=== PATIENT | female | born 1950 | race Caucasian/White ===

== ENCOUNTER 2023-11-10 13:53 | Emergency (ER) | payer MEDICARE, BC ==
[~2023-11-10] VITALS: Ht 170.2 cm; Wt 91.6 kg
[~2023-11-10 13:53] MED LIST: ESCITALOPRAM OX20 MG PO; IRON SLOW RELEA45 MG PO; LEXAPRO20 MG PO; MIDODRINE5 MG PO; OMEPRAZOLE DR20 MG PO; OMEPRAZOLE DR40 MG PO; ROSUVASTATIN CA20 MG PO; TOPROL XL25 M1 PO; XARELTO20 MG PO
[2023-11-10 14:00] VITALS: BP 151/92
[2023-11-10 14:15] VITALS: BP 140/89
[2023-11-10 14:41] LABS: EOS% 1.1 % (0-8); HEMATOCRIT 43.9 % (37.0-47.0); HEMOGLOBIN 14.7 g/dl (12.0-16.0); IMMATURE GRANULOCYTES 0.1 % (0.0-5.0); LYMPH% 17.3 % (15-41); MEAN CELL VOLUME 101.4 fL CALC (80.0-100.0); MEAN CORPUSCULAR HGB 33.9 pG CALC (26.0-32.0); MEAN CORPUSCULAR HGB CONC 33.5 g/dL CAL (32.0-36.0); MONO% 14.2 % (2-13); NEUT# 4.7 thou/uL (2.00-7.15); NEUT% 66.3 % (42-76); RED BLOOD COUNT 4.33 mill/uL (4.20-5.60); RED CELL DISTRI WIDTH 11.7 % (11.5-15.5)
[2023-11-10 14:58] LABS: ALBUMIN 4.4 g/dL (3.2-5.0); BILIRUBIN, TOTAL 0.9 mg/dL (0.02-1.3); CREATININE 0.8 mg/dL (0.5-1.0); POTASSIUM 4.3 mmol/l (3.5-5.1)
[2023-11-10 15:45] VITALS: BP 151/85
[2023-11-10 16:00] VITALS: BP 150/98
[2023-11-10 16:04] VITALS: BP 150/98
== END 2023-11-10 16:04 | disposition home or self-care (01) ==
LOC: ED 13:53
PROVIDERS: Family Medicine
DX: S00.83XA Contusion of other part of head, initial encounter (principal); S00.10XA Contusion of unspecified eyelid and periocular area, initial encounter; H11.33 Conjunctival hemorrhage, bilateral; I48.91 Unspecified atrial fibrillation; I10 Essential (primary) hypertension; W01.0XXA Fall on same level from slipping, tripping and stumbling without subsequent striking against object, initial encounter; Y92.009 Unspecified place in unspecified non-institutional (private) residence as the place of occurrence of the external cause; Z79.01 Long term (current) use of anticoagulants

== ENCOUNTER 2024-04-16 13:48 | Observation (INO) | payer MEDICARE, BC ==
[~2024-04-16] VITALS: Ht 170.2 cm; Wt 98.2 kg
[2024-04-16] VITALS (95 sets, daily range): BP systolic 110–162; BP diastolic 49–118
[~2024-04-16 13:48] MED LIST changes: +PROPOFOL 200 MG/20 ML VIAL IV ONE
--- NOTE | 2024-04-16 13:48 | NUR ---
PT TO ROOM VIA EMS STRETCHER
[2024-04-16 14:22] LABS: BASO% 0.1 % (0-3); IMMATURE GRANULOCYTES 0.2 % (0.0-5.0); LYMPH% 4.3 % (15-41); MEAN CELL VOLUME 100.9 fL CALC (80.0-100.0); MEAN CORPUSCULAR HGB 34.9 pG CALC (26.0-32.0); MEAN CORPUSCULAR HGB CONC 34.6 g/dL CAL (32.0-36.0); MONO% 7.9 % (2-13); NEUT# 9.81 thou/uL (2.00-7.15); NEUT% 87.5 % (42-76); RED BLOOD COUNT 3.41 mill/uL (4.20-5.60); RED CELL DISTRI WIDTH 12.3 % (11.5-15.5)
[2024-04-16 14:32] LABS: ALBUMIN 4.7 g/dL (3.2-5.0); CREATININE 0.7 mg/dL (0.5-1.0); POTASSIUM 4.5 mmol/l (3.5-5.1); TOTAL PROTEIN 7.1 g/dL (6.3-8.2)
[2024-04-16 14:33] LABS: BILIRUBIN, TOTAL 1.7 mg/dL (0.02-1.3); HEMATOCRIT 34.4 % (37.0-47.0); HEMOGLOBIN 11.9 g/dl (12.0-16.0)
[2024-04-16] MEDS ORDERED: ONDANSETRON HCl 4 MG/2 ML SDV IV ONE (14:50)
[2024-04-16] MEDS ORDERED: MORPHINE SULFATE 4 MG/ML VIAL IV ONE (14:50)
[2024-04-16] MEDS ORDERED: SODIUM CHLORIDE 0.9% 1,000 ML IV ONE ×2 (16:02→16:10)
[2024-04-16 18:29] LABS: URINE BLOOD DIPSTICK Negative (NEGATIVE); URINE GLUCOSE - DIPSTICK Negative (NEGATIVE); URINE KETONE 40 mg/dL (NEGATIVE); URINE LEUK ESTERASE Negative (NEGATIVE); URINE NITRITE - DIPSTICK Negative (Negative); URINE PH 5.5 (4.5-8.0); URINE PROTEIN - DIPSTICK Negative (NEG-TRACE); URINE UROBILINOGEN - DIPSTICK 0.2 E.U./dL (0.2)
[2024-04-16 18:30] LABS: URINE COLOR Yellow
--- NOTE | 2024-04-16 19:00 | NUR ---
RECIEVED REPORT FROM RIDDHI PRADO. PT RESTING IN BED. PT DENIES ANY PAIN AT THIS TIME. NAD NOTED ON PT. VSS. PT AWAITING FOR ROOM ASSIGNMENT FOR ADMISSION.
--- NOTE | 2024-04-16 20:11 | NUR ---
REPORT GIVEN TO OSWALDO PRADO.
--- NOTE | 2024-04-16 20:52 | NUR ---
PT TRANSPORTED TO ICU BED 4 VIA ED STRETCHER. NURSE AT BEDSIDE.
[2024-04-16] MEDS ORDERED: ATORVASTATIN CALCIUM 40 MG/TAB PO SCH (21:00)
--- NOTE | 2024-04-16 21:00 | NUR ---
PT ARRIVED VIA STRETCHER FROM ED AT 2051, TRANSFERRED TO BED AND ADMISSION COMPLETED. PT STATED SHE HAD NOT EATEN, WAS PROVIDED SANDWICH TRAY WITH ASSISTANCE OF SUP. S/P SYNCOPAL FALL WITH R ARM DISLOCATION; POST REDUCTION IN ED UNDER SEDATION AND IS IMMOBILIZED WITH R ARM SLING SUPPORTED BY ABBIE WRAP PRESSURE SUPPORT FOR STABILIZATION OF JOINT. RATES PAIN 5/10 REQ SENT TO MD FOR PAIN MEDICATION. EDUCATED PATIENT ON WEIGHT BEARING, OFFLOADING OF WEIGHT TO THE JOINT, PROTECTING THE ARM AND FALL PRECAUTIONS. DEMONSTRATED UNDERSTANDING. SCDS APPLIED FOR VTE PREVENTION. MEDICATED FOR PAIN PER MD ORDER. REQUESTED TO REST. UNDERSTANDS USE OF CALL LIGHT, PUREWICK IN PLACE. FALL PRECAUTIONS ENGAGED.
[2024-04-16] MEDS ORDERED: HYDROcodone 5 MG/Acetaminophen 325 MG/COMBO PO PRN (23:55)
[2024-04-16] MEDS ORDERED: ACETAMINOPHEN 325 MG/TAB PO PRN (23:55)
[2024-04-17] VITALS (104 sets, daily range): BP systolic 112–150; BP diastolic 49–110
--- NOTE | 2024-04-17 01:00 | NUR ---
PT RESTING COMFORTABLY WITH NO COMPLAINTS. CALL LIGHT IN REACH
--- NOTE | 2024-04-17 03:00 | NUR ---
OBSERVED SLEEPING COMFORTABLY, VSS, NO SIGN OF DISTRESS, CALL LIGHT IN REACH
--- NOTE | 2024-04-17 05:04 | NUR ---
PT LINEN CHANGE PER REQUEST. REPORTS MARKED REDUCTION IN PAIN IN R SHOULDER. ASSIST TO REPOSITION WITH OFFLOADING VIA PILLOW SUPPORT OF RIGHT ELBOW. DENIES NEEDS AT THIS TIME. RESTING COMFORTABLY WITH CALL LIGHT IN REACH.
[2024-04-17 05:20] LABS: BASO% 0.1 % (0-3); HEMOGLOBIN 10.2 g/dl (12.0-16.0); IMMATURE GRANULOCYTES 0.3 % (0.0-5.0); LYMPH% 19.5 % (15-41); MEAN CELL VOLUME 105.6 fL CALC (80.0-100.0); MEAN CORPUSCULAR HGB 35.9 pG CALC (26.0-32.0); MONO% 15.8 % (2-13); NEUT# 6.15 thou/uL (2.00-7.15); NEUT% 64.3 % (42-76); RED BLOOD COUNT 2.84 mill/uL (4.20-5.60); RED CELL DISTRI WIDTH 12.7 % (11.5-15.5)
[2024-04-17 05:28] LABS: BILIRUBIN, TOTAL 1.6 mg/dL (0.02-1.3); CREATININE 0.7 mg/dL (0.5-1.0); POTASSIUM 4.6 mmol/l (3.5-5.1); TOTAL PROTEIN 5.7 g/dL (6.3-8.2)
[2024-04-17 05:37] LABS: ALBUMIN 3.6 g/dL (3.2-5.0)
--- NOTE | 2024-04-17 08:00 | NUR ---
REPORT RECEIVED FROM NIGHT NURSE. PT HAD CLOSED REDUCTION OF RIGHT SHOULDER LAST NIGHT AND ARM CURRENTLY IN SLING. PT IS A/O. LUNGS CLEAR; PT ON RA. NO COUGH OR SOB NOTED. HEART SOUNDS S1S2; PT IS NSR ON TELE. BS ACTIVE; ABDOMEN SOFT/NON-TENDER. PULSES WEAK ALL EXTREMETIES. SKIN W/D/I. LOW GRADE TEMP OF 99.1 TEMPORAL. PT GIVEN BREAKFAST TRAY. ALL NEEDS MET AT THIS TIME. CALL LIGHT AND BELONGINGS WITHIN REACH. VSS.
[2024-04-17] MEDS ORDERED: RIVAROXABAN 20 MG TAB PO SCH (09:00)
[2024-04-17] MEDS ORDERED: SODIUM CHLORIDE 1 GM/TAB TAB PO SCH (09:00)
[2024-04-17] MEDS ORDERED: ESCITALOPRAM 10 MG/TAB PO SCH (09:00)
[2024-04-17] MEDS ORDERED: PANTOPRAZOLE SODIUM Sesquihydr 40 MG/TAB PO SCH (09:00)
[2024-04-17] MEDS ORDERED: METOPROLOL SUCCINATE 25 MG/TAB-TOPROL XL PO SCH (09:00)
--- NOTE | 2024-04-17 12:00 | NUR ---
NO CHANGES TO PT STATUS. PT VISITED BY EARLIER AND IS NOW ASLEEP IN BED. LUNCH TRAY PLACED AT BEDSIDE. CALL LIGHT IN REACH. VSS.
--- NOTE | 2024-04-17 16:00 | NUR ---
NO CHANGES TO PT STATUS. PT ASSESSED EARLIER BY OT AND PT. PT AGREEABLE THAT DISCHARGE PLAN LIKELY TO REHAB FACILITY. PT REPORTED PAIN IN RIGHT SHOULDER AND MEDICATED PER MAR. RESTING IN BED EYES CLOSED AT THIS TIME. CALL LIGHT AND BELONGINGS WITHIN REACH. VSS.
--- NOTE | 2024-04-17 19:30 | NUR ---
awake. no acute distress. sling cont to rt shoulder. residential monitor shows sinus rhythm. saline lock in place. po fluids taken well. pure wick cath in place. fall precautions & bed alarm conts.
[2024-04-18] VITALS (8 sets, daily range): BP systolic 117–144; BP diastolic 59–72
--- NOTE | 2024-04-18 00:01 | NUR ---
awake. no acute distress. soft top installer shows sinus rhythm.
--- NOTE | 2024-04-18 05:35 | NUR ---
lab here. blood drawn.
[2024-04-18 05:59] LABS: HEMATOCRIT 28.1 % (37.0-47.0); HEMOGLOBIN 9.3 g/dl (12.0-16.0); MEAN CELL VOLUME 105.6 fL CALC (80.0-100.0); MEAN CORPUSCULAR HGB CONC 33.1 g/dL CAL (32.0-36.0); RED BLOOD COUNT 2.66 mill/uL (4.20-5.60); RED CELL DISTRI WIDTH 12.6 % (11.5-15.5)
[2024-04-18 06:13] LABS: ALBUMIN 3.2 g/dL (3.2-5.0); BILIRUBIN, TOTAL 1.1 mg/dL (0.02-1.3); CREATININE 0.6 mg/dL (0.5-1.0); POTASSIUM 4.1 mmol/l (3.5-5.1); TOTAL PROTEIN 5.3 g/dL (6.3-8.2)
--- NOTE | 2024-04-18 07:55 | NUR ---
report received from night nurse. pt is a/o. lungs clear; on ra. no cough or sob noted. heart sounds s1s2; pt is nsr on tele. bs active. abdomen soft/non-tender. pulses weak all extremeties. r arm remains in sling. pt denies any pain at this time; reports having pain meds earlier this morning. pt has breakfast tray at bedside. aware that plan is to go to rehab facility and is agreeable. call light in reach. vss.
[2024-04-18] MEDS ORDERED: SODIUM CHLORIDE 1 GM/TAB TAB PO SCH (09:00)
--- NOTE | 2024-04-18 09:45 | NUR ---
pt taken to med surg unit by wheelchair. pt was able to stand and ambulate this morning with pt. pt on telemetry, all belongings sent with pt.
[2024-04-18] MEDS ORDERED: SOD CHLORIDE1 GM PO (11:49)
[2024-04-18] MEDS ORDERED: LORTAB5 PO (11:49)
--- NOTE | 2024-04-18 14:30 | NUR ---
CALLED [facility]
--- NOTE | 2024-04-18 15:19 | NUR ---
IV site discontinued, cath intact. No edema , no redness, voices no discomfort. Discharge instructions given. Patient verbalizes understanding of same. Discharged in stable condition via [facility] to [facility] with family. All belongings sent with pt.
== END 2024-04-18 15:19 ==
LOC: ED 13:48 → ED-I 17:20 → ED 17:36 → MS2 17:37 → ICU 17:37 → MS2 04-18 09:48
PROVIDERS: Family Medicine; Internal Medicine; ADMIT Internal Medicine; ATTEND Internal Medicine
PROC: 0RSJXZZ Reposition Right Shoulder Joint, External Approach (ICD-10-PCS; principal; 2024-04-16)
DX: R55 Syncope and collapse (principal); S43.014A Anterior dislocation of right humerus, initial encounter; E87.1 Hypo-osmolality and hyponatremia; S40.011A Contusion of right shoulder, initial encounter; S00.83XA Contusion of other part of head, initial encounter; I10 Essential (primary) hypertension; E11.9 Type 2 diabetes mellitus without complications; I48.0 Paroxysmal atrial fibrillation; W19.XXXA Unspecified fall, initial encounter; Z98.84 Bariatric surgery status
CPT/HCPCS: G0378; J2405; Q9967